=== PATIENT | male | born 1965 | race Caucasian/White ===

== ENCOUNTER 2024-01-29 15:33 | Outpatient (CLI) | payer OTHER, SELFPAY | END 2024-01-29 15:34 | disposition home or self-care (01) | LOC: NFLDREF 01-30 05:33 | PROVIDERS: Visit Provider Nurse Practitioner Family | DX: N30.00 Acute cystitis without hematuria (principal); B96.20 Unspecified Escherichia coli [E. coli] as the cause of diseases classified elsewhere | CPT/HCPCS: 87086; 87186 ==